=== PATIENT | female | born 1960 | race Caucasian/White ===

== ENCOUNTER 2022-11-08 09:01 | Emergency (ER) | payer MEDICARE, OTHER, SELFPAY ==
[2022-11-08 09:07] VITALS: BP 155/93; PULSE 102; RESP 20; TEMP 36.4; O2SAT 97; BMI 37.8
--- NOTE | 2022-11-08 10:03 | CRLHL7_ITS ---
For Patients: As a result of the Century Cures Act, medical imaging exams and procedure reports are released immediately into your electronic medical record. You may view this report before your referring provider. If you have questions, please contact your health care provider. INDICATION: Right hip and groin pain.. TECHNIQUE: CT abdomen and pelvis acquired with 108 cc Isovue 370 IV contrast. COMPARISON: None available.. FINDINGS: Lower chest: Unremarkable. Liver: Cirrhotic liver morphology with nodular hepatic contour. Patent right hepatic vein to right portal vein TIPS. Findings of portal hypertension with enlarged main portal vein and splenomegaly. No focal liver lesion. Gallbladder and bile ducts: The gallbladder is surgically absent. No biliary ductal dilation. Pancreas: Unremarkable. No mass or inflammation. Spleen: Splenomegaly measuring to 16 cm. Too small to characterize hypodensity within the mid spleen. Adrenal glands: Unremarkable. No nodules. Kidneys: Unremarkable. No suspicious masses, stones, or hydronephrosis. Too small to characterize hypodensity within the upper pole of the left kidney. GI tract: Unremarkable. Normal in caliber. No sign of mass or inflammation. Normal appendix. Vasculature: Abdominal aorta is normal in caliber with atherosclerotic calcifications. Mesenteric arteries are patent. Lymph nodes: No lymphadenopathy. Peritoneum/Abdominal Wall: Unremarkable. No sign of mass or infiltration. No free air or significant free fluid. Pelvis: Decompressed bladder. Uterus is surgically absent.. Bones: Mild bilateral hip osteoarthritis. Severe lower lumbar facet arthropathy. Moderate lower lumbar degenerative disc disease. IMPRESSION: 1. No acute abnormality identified. 2. Stigmata of cirrhosis and portal hypertension status post TIPS, which is patent. Please note that all CT scans at this facility use dose modulation, iterative reconstruction, and/or weight-based dosing when appropriate to reduce radiation dose to as low as reasonably achievable. Dictated by Josefina Esquivel MD @ 11/08/2022 2:00:50 PM (Electronically Signed)
--- NOTE | 2022-11-08 10:29 | ED.GENADULT ---
HPI - General Adult General Date Seen: 11/08/22 Chief complaint: Groin Pain Stated complaint: Pain in upper right leg/hip Time Seen by Provider: 11/08/22 09:27 History of Present Illness HPI narrative: This is a 62-year-old female presenting to the ER today with her with multiple complaints, primarily that she is having pain involving her right hip and groin that kept her from sleeping last night. She has a complex past history. It sounds like she has insulin-dependent type 2 diabetes. She also has a history of vaginal cancer treated years ago at her home hospital in [place], [place]. It sounds like she had recurrence of cancer and required radiation therapy to her pelvis. She also apparently has something abnormal with her liver (probably not a met? ) And is chronically on lactulose to prevent hepatic encephalopathy. She is on oral medications, Trulicity, and insulin for her diabetes. She has a DexSmartVault continuous glucose monitor. She also notes that she has some chronic bilateral lower extremity edema. This is a bit worse in the left within in the right foot. She began to have pain involving her right hip or groin. She does not think it is in the skin. She feels like it is deep. It started several weeks ago, possibly a few months ago. She says she was seen in the ER in [place] about 6 weeks ago. No diagnosis was arrived. She was given Flexeril. She has been taking that (at half the prescribed dose because she sensitive) but is not very effective. She has been trying to wean off the Flexeril lately and has not taking any. She is now of Flexeril. She traveled down from [place] to the [place] area to visit her family for her 3-year-old grandchild birthday today. She had trouble sleeping in the hotel bed last night so came here to the ER wanting to get some medicine to help her sleep. She can not take Tylenol because of her liver. She has been told to limit NSAIDs. She cannot tolerate any opiates because they cause GI side effects. She wants something else for pain. She has a difficult time deciding if she even wants a workup to evaluate potential causes of her hip pain or if she just wants pain medicines. She does not have a fever. No chest pain. No abdominal pain. No urinary symptoms. No flank pain. No recent falls. No known injuries. She has a largely sedentary lifestyle. Related Data Home Medications Medication Instructions Recorded Confirmed [id number] 11/08/22 dulaglutide 1.5 mg/0.5 mL 3 mg subcut QWEEK 11/08/22 11/08/22 subcutaneous pen injector (Trulicity) insulin lispro protamine-lispro 45 unit subcut QAM 11/08/22 11/08/22 100 unit/mL (50-50) subcutaneous susp (Humalog Mix 50-50 Insuln U-100) omeprazole 20 mg capsule,delayed 20 mg PO DAILY 11/08/22 11/08/22 release xylitol 500 mg mucosal adhesive mg mucous membrane 11/08/22 tablet Previous Rx's Medication Instructions Recorded ketorolac 10 mg tablet 10 mg PO TID PRN pain #20 tabs 11/08/22 Allergies Allergy/AdvReac Type Severity Reaction Status Date / Time atorvastatin [From Lipitor] Allergy Intermediate Verified 11/08/22 09:22 lisinopril Allergy Intermediate Verified 11/08/22 09:22 latex Allergy Mild Verified 11/08/22 09:22 betadine Allergy Intermediate Uncoded 11/08/22 09:23 opiods Allergy Intermediate Uncoded 11/08/22 09:22 PFSH PFSH Social History Smoking Status: Never smoker How often do you have a drink containing alcohol: never AUDIT-C Alcohol total score: 0 Non-prescribed substance use: denies use Exam Narrative: Exam Narrative: Constitutional: Appears well-developed and well-nourished. Alert. Conversant. Non toxic. Somewhat anxious. Interacts pleasantly with her . HENT: Head: Atraumatic. Nose: Nose normal. Mouth/Throat: Oral mucosa is clear and moist. no trismus. Pharynx normal. Tonsils symmetric. No tonsillar enlargement, erythema, or exudate. Eyes: Conjunctivae normal. EOM normal. Pupils equal, round, and reactive to light. No scleral icterus. Neck: Normal range of motion. Neck supple. No tracheal deviation present. Cardiovascular: Normal rate, regular rhythm. No gallop. No friction rub. No murmur heard. Symmetric radial artery pulses Pulmonary/Chest: Effort normal. No stridor. No respiratory distress. No wheezes. No rales. No rhonchi . No tenderness. Abdominal: Soft. Bowel sounds normal. No distension. No mass. No tenderness. No rebound. No guarding. No CVA tenderness. Musculoskeletal: Inspection of her back normal. No midline step-off. No bruising or ecchymosis. RUE: Normal range of motion. No tenderness. No deformity LUE: Normal range of motion. No tenderness. No deformity Pelvis stable. Mild tenderness around right hip. No swelling. No redness. No rash. No shingles. She is able to flex her hip to about 45?. She is able to bear weight in take a few steps. No foreshortening. No rotational deformity. Quadriceps, hamstring, thigh are nontender. Knee nontender. Trace right ankle edema. LLE: Normal range of motion. 1+ left ankle edema. No tenderness. No deformity Neurological: Alert and oriented to person, place, and time. Normal strength. CN II-VII intact. No sensory deficit. GCS eye subscore is 4. GCS verbal subscore is 5. GCS motor subscore is 6. Normal coordination Skin: Skin is warm and dry. No rash noted. No pallor. Normal capillary refill. Psychiatric: Normal mood. Normal affect. Const: Vital Signs, click to edit/add: Vital Signs - 24 hr 11/08/22 09:07 11/08/22 11:19 Temperature 97.5 F L Pulse Rate [Right Pulse Oximeter] 102 H 104 H Respiratory Rate 20 Blood Pressure [Ri ght Upper Arm] 155/93 H 142/81 H Pulse Oximetry 97 97 Oxygen Delivery Me thod Room Air Course Vital Signs Vital signs: Initial Vital Signs Temperature 97.5 F L 11/08/22 09:07 Temperature Source Temporal Artery Scan 11/08/22 09:07 Pulse Rate 102 H 11/08/22 09:07 Pulse Rhythm Regular 11/08/22 09:07 Respiratory Rate 20 11/08/22 09:07 Blood Pressure 155/93 H 11/08/22 09:07 Blood Pressure Mean 113 H 11/08/22 09:07 Blood Pressure Position Supine 11/08/22 09:07 Pulse Oximetry 97 11/08/22 09:07 Oxygen Delivery Method Room Air 11/08/22 09:07 Vital Signs Temperature 97.5 F L 11/08/22 09:07 Pulse Rate 102 H 11/08/22 09:07 Respiratory Rate 20 11/08/22 09:07 Blood Pressure 155/93 H 11/08/22 09:07 Pulse Oximetry 97 11/08/22 09:07 Oxygen Delivery Method Room Air 11/08/22 09:07 Temperature 97.5 F L 11/08/22 09:07 Pulse Rate 104 H 11/08/22 11:19 Respiratory Rate 20 11/08/22 09:07 Blood Pressure 142/81 H 11/08/22 11:19 Pulse Oximetry 97 11/08/22 11:19 Oxygen Delivery Method Room Air 11/08/22 09:07 Medical Decision Making MDM Narrative Medical decision making narrative: Recheck-doing better after Toradol. CT delayed. Discussed with Radiology Department. They will follow-up Recheck-CT results back. Discussed with patient and . MDM 62-year-old female from [facility] visiting here in [place] visit family. She presents to the ER today with an exacerbation of right hip pain that is been ongoing for her for a few months but is now worse since yesterday. Differential is broad. No recent history of trauma but consider possible stress fracture or occult fracture given postmenopausal state. CT abdomen and pelvis shows no evidence for any bone or abnormality. She has a history of vaginal cancer and liver disease. No evidence for any metastatic lesions in her bony pelvis or hip. CT scan does show evidence for some arthritis affecting her lumbar spine but clinical presentation of hip pain does not relief correlate with a right lower extremity lumbar radiculopathy. UA shows no evidence UTI that might be giving referred pain to her hip. Laboratory workup shows mild hyperglycemia. She is known to be diabetic. Normal anion gap. No evidence for DKA. Lactic acid minimally elevated 2.1 but she has no clear evidence for infection or sepsis. Suspect this probably correlates with dehydration as well as baseline liver disease. White blood cell count slightly low at 4.1. Hemoglobin low at 10.7. This anemia is previously known to the patient. At this point no clear evidence for any surgical emergency such as hell fracture, pelvic fracture, any obvious intrapelvic fluid collection or inflammation. She is feeling somewhat better after Toradol. Will try short prescription for Toradol that she can use as needed for pain. She will follow-up with her regular provider through [facility] when she gets home. Precautions for return to the ER reviewed. Lab Data Labs: Lab Results 11/08/22 Range/Units 10:26 WBC 4.15 L (4.50-11.00) K/uL RBC 4.35 (4.00-5.20) m/uL Hgb 10.7 L (12.0-16.0) gm/dL Hct 34.4 (33.0-51.0) % MCV 79 L (80-100) fL MCH 25 L (26-34) pg MCHC 31 L (32-36) gm/dL RDW Coeff of [place] 15.2 (11.5-15.5) % Plt Count 120 L (140-440) K/uL Neut % (Auto) 66.9 (42.0-72.0) % Lymph % (Auto) 19.8 L (20-44) % [place] % (Auto) 8.7 (0.0-11.0) % Eos % (Auto) 3.9 (0.0-7.0) % Baso % (Auto) 0.7 (0.0-3.0) % Neut # (Auto) 2.80 (1.7-7.0) K/uL Lymph # (Auto) 0.80 L (0.90-2.90) K/uL [place] # (Auto) 0.40 (0.00-0.90) K/UL Eos # (Auto) 0.20 (0.00-0.50) K/uL Baso # (Auto) 0.00 (0.00-0.30) K/uL Abs Immat Gran (auto) 0.00 (0.00-0.30) K/uL Imm/Tot Granulo (auto) 0.0 % Sodium 142 (135-149) mmol/L Potassium 4.1 (3.6-5.1) mmol/L Chloride 114 (96-114) mmol/L Carbon Dioxide 19 L (20-32) mmol/L Anion Gap 9 (7-15) mEq/L BUN 28 (7-30) mg/dL Creatinine 1.4 (0.5-1.5) mg/dL Estimated Creat Clear 35.06 Estimated GFR 42 ml/min Glucose 151 H (60-115) mg/dL Lactate 2.1 H (0.5-1.9) mmol/L Calcium 10.8 H (8.4-10.6) mg/dL Total Bilirubin 2.0 H (0.1-1.5) mg/dL AST 40 H (12-35) U/L ALT 28 (4-35) U/L Alkaline Phosphatase 117 (40-150) U/L Total Protein 8.6 H (6.0-8.3) g/dL Albumin 3.7 (3.3-5.0) g/dL Urine Color Brown A (Yellow) Urine Appearance Clear (Clear) Urine pH 5.5 (5.0-8.5) Ur Specific [place] >= 1.030 (1.000-1.030) Urine Protein 1+ A (Negative) Urine Glucose (UA) Negative (Negative) Urine Ketones Negative (Negative) Urine Blood Trace-intact A (Negative) Urine Nitrite Negative (Negative) Urine Bilirubin Negative (Negative) Urine Urobilinogen 0.2 (0.2-1.0) Ur Leukocyte Esterase Negative (Negative) Urine RBC 0-2 (0-2) Urine WBC 0-2 (0-5) Ur Squamous Epith Cells Moderate A (None-Few) Urine Bacteria Few A (None) Urine Mucus Few A (None) Imaging Data CT scan - abdomen: Radiologist's impression: IMPRESSION: 1. No acute abnormality identified. 2. Stigmata of cirrhosis and portal hypertension status post TIPS, which is patent. Discharge Plan Discharge Clinical Impression: Hip pain, right Patient Disposition: Home, Self-Care Condition: Stable Instructions: Hip Pain (ED) Additional Instructions: Please follow-up with your regular doctor next week. If you have worsening pain or other concerning symptoms such as fever, weakness down her leg, worsening swelling, or any problems, please come back to the ER right away to be recheck Use ketorolac as needed for pain. Be careful with this medication because it can cause upset stomach and ulcers. Continue on your regular medications. Prescriptions: New ketorolac 10 mg tablet 10 mg PO TID PRN (Reason: pain) Qty: 20 0RF No Action Trulicity 1.5 mg/0.5 mL pen injector 3 mg subcut QWEEK Humalog Mix 50-50 Insuln U-100 100 unit/mL (50-50) suspension 45 unit subcut QAM [id number] Rx Instructions: 17 ml Q day xylitol 500 mg muco-adhesive buccal tablet mucous membrane omeprazole 20 mg capsule,delayed release(DR/EC) 20 mg PO DAILY Follow Up/Referrals: Provider,Not a Local [Primary Care Provider] - Stand Alone Forms: MyHealth Info Instructions
[2022-11-08 10:32] LABS: Lactate* 2.1 mmol/L (0.5-1.9)
[2022-11-08] MEDS: KETOROLAC 15 MG/ML inj IVP ×2 (10:32→14:27)
[2022-11-08 10:34] LABS: Basophils Percent Auto 0.7 % (0.0-3.0); Eosinophils Percent Auto 3.9 % (0.0-7.0); Hematocrit 34.4 % (33.0-51.0); Hemoglobin* 10.7 gm/dL (12.0-16.0); Lymphocytes Percent Auto 19.8 % (20-44); Mean Corpuscular HGB Conc 31 gm/dL (32-36); Mean Corpuscular Hemoglobin 25 pg (26-34); Mean Corpuscular Volume 79 fL (80-100); Monocytes Percent Auto 8.7 % (0.0-11.0); Neutrophils Percent Auto 66.9 % (42.0-72.0); Platelet Count* 120 K/uL (140-440); RDW Coefficient of Variation % 15.2 % (11.5-15.5); Red Blood Count 4.35 m/uL (4.00-5.20); White Blood Count* 4.15 K/uL (4.50-11.00)
[2022-11-08 10:42] LABS: Slide Review Reflex No
[2022-11-08 10:45] LABS: Appearance Urine Clear (Clear); Bilirubin Urine Negative (Negative); Blood Urine Trace-intact (Negative); Color Urine Brown (Yellow); Glucose Urine Negative (Negative); Ketones Urine Negative (Negative); Leukocyte Esterase Urine Negative (Negative); Nitrite Urine Negative (Negative); Protein Urine 1+ (Negative); Specific Gravity Urine >= 1.030 (1.000-1.030); Urobilinogen Urine 0.2 (0.2-1.0); pH Urine 5.5 (5.0-8.5)
[2022-11-08 10:52] LABS: Chloride* 114 mmol/L (96-114)
[2022-11-08 10:53] LABS: Albumin* 3.7 g/dL (3.3-5.0); Potassium* 4.1 mmol/L (3.6-5.1); Sodium* 142 mmol/L (135-149)
[2022-11-08 10:56] LABS: Alanine Aminotransferase* 28 U/L (4-35); Alkaline Phosphatase* 117 U/L (40-150); Anion Gap 9 mEq/L (7-15); Aspartate Amino Transferase* 40 U/L (12-35); Blood Urea Nitrogen* 28 mg/dL (7-30); Calcium* 10.8 mg/dL (8.4-10.6); Carbon Dioxide* 19 mmol/L (20-32); Creatinine* 1.4 mg/dL (0.5-1.5); Est. Creatinine Clearance* 35.06; Estimated Glomerular Filt Rate 42 ml/min; Glucose* 151 mg/dL (60-115); Total Protein* 8.6 g/dL (6.0-8.3)
[2022-11-08 11:12] LABS: Bacteria Urine Few; Mucus Urine Few; RBC Urine 0-2 (0-2); Squamous Epithelial Cell Urine Moderate (None-Few); WBC Urine 0-2 (0-5)
[2022-11-08 11:19] VITALS: BP 142/81; PULSE 104; O2SAT 97
--- NOTE | 2022-11-08 13:20 | ED.NURSE ---
Pt presenting to ED c/o upper RIGHT groin pain. Pt denies Hx of DVT, PE, recent travel or COVID infection. Pt endorsing some episodes of SOB. A 22G IV was placed in pts RIGHT hand. PT pain addressed and treated, decreased discomfort. Currently awaiting pts imaging to be transcribed and a plan to be formulated.
== END 2022-11-08 14:39 | disposition home or self-care (01) ==
PROVIDERS: Emergency Provider Emergency Medicine
DX: M25.551 Pain in right hip (principal)
CPT/HCPCS: 36415; 74177; 80053; 81001; 83605; 85025; 87086; 87186; 96374; 96375; 99283; 99284; 99285; J1885; Q9967